=== PATIENT | male | born 1995 | race African-American/Black ===

== ENCOUNTER 2019-03-01 21:24 | Emergency (ER) | payer SELFPAY ==
[~2019-03-01] VITALS: Ht 185.4 cm; Wt 77.7 kg
[~2019-03-01 21:24] MED LIST: AMOX1TAB10 PO; HYDR-4011 PO; IBUP-1542 PO
[2019-03-01 21:27] VITALS: Ht 185.4 cm; Wt 77.7 kg
[2019-03-01] MEDS ORDERED: morphine 2 MG INJ IV STA (23:46)
[2019-03-01] MEDS ORDERED: KETOROLAC 30 MG INJ IV STA (23:46)
[2019-03-02] MEDS ORDERED: SOD CHLORIDE 0.9% 1,000 ML IV ONE
[2019-03-02] MEDS ORDERED: SOD CHLORIDE 0.9% 100 ML ONE (01:25)
[2019-03-02] MEDS ORDERED: IOHEXOL 300MG/ML 150 ML BTL ONE (01:25)
[2019-03-02] MEDS ORDERED: AMPICILLIN/SULB 3 GM/NS (PMX) 100 ML IVPB ONE (02:00)
[2019-03-02 04:43] VITALS: BP 114/65; PULSE 59; RESP 18
== END 2019-03-02 04:44 | disposition home or self-care (01) ==
LOC: FTE 21:24
DX: K11.20 Sialoadenitis, unspecified (principal)
CPT/HCPCS: 36415; 70491; 80053; 85025; 87880; 96374; 96375; 99285; J0295; J1885; J2270; J7030; Q9967